=== PATIENT | female | born 1940 | race Caucasian/White ===

== ENCOUNTER 2018-07-04 15:12 | Emergency (ER) | payer MEDICARE, OTHER ==
--- NOTE | 2018-07-04 16:02 | EDM.PDOC ---
ED HPI GENERAL MEDICAL PROBLEM - General Chief Complaint: General Stated Complaint: ILLNESS Time Seen by Provider: 07/04/18 15:35 Source of Information: Reports: Patient History Limitations: Reports: No Limitations - History of Present Illness INITIAL COMMENTS - FREE TEXT/NARRATIVE: Summer presents to the emergency room with complaints of nausea, left shoulder pain, jaw pain, feeling dizzy and sweating. She also reports SOB at times but states her SOB is nothing worse then her usual SOB. She denies fever, chills, vomiting or change in bowel/bladder function. She has tried pushing oral fluids and drank 2 bottles of propel water along with 16 ounce glasses of water x 5 today. - Related Data Allergies Allergy/AdvReac Type Severity Reaction Status Date / Time cefaclor [Cefaclor] Allergy Unknown unknown Verified 10/26/16 13:49 Sulfa (Sulfonamide Allergy Unknown unknown Verified 10/26/16 13:49 Antibiotics) ciprofloxacin [From Cipro] Allergy Hallucinati Verified 10/26/16 13:56 ons codeine Allergy Rash Verified 10/26/16 13:49 cyclobenzaprine Allergy Hallucinati Verified 10/26/16 13:56 [From Flexeril] ons levofloxacin Allergy Hallucinati Verified 10/26/16 13:56 ons Home Meds: Home Meds Aspirin 81 mg PO ASDIRECTED 07/21/13 [History] Atenolol 25 mg PO BID 07/21/13 [History] FLUoxetine [PROzac] 10 mg PO DAILY 07/21/13 [History] Losartan [Cozaar] 25 mg PO BID 07/21/13 [History] Omeprazole [Prilosec] 20 mg PO DAILY 07/21/13 [History] Sennosides/Docusate Sodium [Senna-Docusate Sodium] 1 each PO QPM #24 tablet 01/28 [Rx] hydroCHLOROthiazide [Hydrochlorothiazide] 25 mg PO DAILY 07/21/13 [History] Past Medical History HEENT History: Reports: Hard of Hearing, Impaired Vision Cardiovascular History: Reports: High Cholesterol, Hypertension Respiratory History: Reports: Asthma, COPD Gastrointestinal History: Reports: Chronic Constipation, Gastritis Genitourinary History: Reports: UTI, Recurrent [employer]IS[employer]OR PREFLIGHT History: Reports: Endometriosis Musculoskeletal History: Reports: Osteoarthritis Psychiatric History: Reports: Anxiety Dermatologic History: Reports: Other (See Below) Other Dermatologic History: fungus l middle finger - Infectious Disease History Infectious Disease History: Reports: Chicken Pox, Measles, Mumps - Past Surgical History Female Surgical History: Reports: Breast Biopsy, Hysterectomy, Salpingo- Oophorectomy Social & Family History - Tobacco Use Smoking Status *Q: Former Smoker Used Tobacco, but Quit: Yes Month/Year Tobacco Last Used: many years ago - Caffeine Use Caffeine Use: Reports: Soda - Recreational Drug Use Recreational Drug Use: No ED ROS GENERAL - Review of Systems Review Of Systems: See Below Constitutional: Reports: Diaphoresis. Denies: Fever, Chills, Malaise, Weakness HEENT: Reports: Other (she complains of jaw pain off and on with aching. ). Denies: Ear Pain, Throat Pain Respiratory: Reports: Shortness of Breath. Denies: Wheezing, Cough, Sputum, Hemoptysis Cardiovascular: Reports: Dyspnea on Exertion, Other (She complains of dizziness , left shoulder/arm pain and jaw pain at times since she has been moving to a town house from an apartment. ). Denies: Chest Pain, Edema, Lightheadedness, Palpitations, PND, Syncope Endocrine: Reports: No Symptoms GI/Abdominal: Reports: No Symptoms : Reports: Urinary Retention, Other (She reports urinary retention is normal for her). Denies: Dysuria, Flank Pain, Frequency, Hematuria, Pain, Urgency Musculoskeletal: Reports: Shoulder Pain, Arm Pain Skin: Reports: No Symptoms Neurological: Reports: Dizziness. Denies: Confusion, Headache, Numbness, Pre- Existing Deficit, Syncope, Tingling, Trouble Speaking, Difficulty Walking, Weakness, Gait Disturbance Psychiatric: Reports: No Symptoms Hematologic/Lymphatic: Reports: No Symptoms Immunologic: Reports: No Symptoms ED EXAM, GENERAL - Physical Exam Exam: See Below Free Text/Narrative:: Summer is an alert and oriented 77 year old female presenting with complaints of nausea, left shoulder pain, jaw pain, feeling dizzy and sweating. She also reports SOB at times but states her SOB is nothing worse then her usual SOB. She denies fever, chills, vomiting or change in bowel/bladder function. Summer has been moving from an apartment to a town house. She states she has been drinking more Dr. Pepper recently. She denies injury or fall. Exam Limited By: No Limitations General Appearance: Alert, WD/WN, No Apparent Distress Eye Exam: Bilateral Eye: EOMI, Normal Inspection, PERRL Ears: Normal External Exam, Normal Canal, Hearing Grossly Normal, Normal TMs Ear Exam: Bilateral Ear: Auricle Normal, Canal Normal, TM normal Nose: Normal Inspection, Normal Mucosa, No Blood Throat/Mouth: Normal Inspection, Normal Lips, Normal Gums, Normal Oropharynx, Normal Voice, No Airway Compromise Head: Atraumatic, Normocephalic Neck: Normal Inspection, Supple, Non-Tender, Full Range of Motion. No: Lymphadenopathy (R), Lymphadenopathy (L) Respiratory/Chest: No Respiratory Distress, Lungs Clear, Normal Breath Sounds, No Accessory Muscle Use, Chest Non-Tender Cardiovascular: Normal Peripheral Pulses, Regular Rate, Rhythm, No Edema, No Gallop, No Murmur, No Rub Peripheral Pulses: 2+: Radial (L), Radial (R), Dorsalis Pedis (L), Dorsalis Pedis (R) GI/Abdominal: Normal Bowel Sounds, Soft, Non-Tender, No Organomegaly, No Distention, No Mass Back Exam: Normal Inspection, Full Range of Motion. No: CVA Tenderness (R), CVA Tenderness (L) Extremities: Normal Inspection, Normal Range of Motion, Non-Tender, No Pedal Edema, Normal Capillary Refill Neurological: Alert, Oriented, CN II-XII Intact, Normal Cognition, Normal Gait, No Motor/Sensory Deficits Psychiatric: Normal Affect, Normal Mood Skin Exam: Warm, Dry, Intact, Normal Color, No Rash Lymphatic: No Adenopathy EKG INTERPRETATION EKG Date: 07/04/18 Time: 16:01 Rhythm: NSR Rate (Beats/Min): 64 [place]: Normal P-Wave: Present QRS: Normal ST-T: Normal QT: Normal Course - Vital Signs Last Recorded V/S: Last Vital Signs Temp 36.4 C 07/04/18 15:27 Pulse 67 07/04/18 20:00 Resp 18 07/04/18 20:00 BP 116/79 07/04/18 20:00 Pulse Ox 98 07/04/18 20:00 - Orders/Labs/Meds Orders: Active Orders 24 hr Category Date Time Status EKG Documentation Completion [RC] ASDIRECTED Care 07/04/18 16:01 Active Chest 1V Frontal [CR] Stat Exams 07/04/18 16:01 Taken NS + KCl 20mEq/L [Normal Saline with 20 mEq KCl] 1,000 Med 07/04/18 19:15 Active ml IV ASDIRECTED Potassium Chloride [Klor-Con M20] Med 07/05/18 09:00 Active 20 meq PO DAILY Sodium Chloride 0.9% [Saline Flush] Med 07/04/18 19:13 Active 10 ml FLUSH ASDIRECTED PRN Saline Lock Insert [OM.PC] Routine Oth 07/04/18 19:13 Ordered EKG 12 Lead [EK] Routine Ther 07/04/18 15:59 Ordered Medication Orders Potassium Chloride/Sodium Chloride (Normal Saline With 20 Meq Kcl) 1,000 mls @ 500 mls/hr IV ASDIRECTED DONAVAN Last Admin: 07/04/18 19:38 Dose: 500 mls/hr Potassium Chloride (Klor-Con M20) 20 meq PO DAILY DONAVAN Last Admin: 07/04/18 19:47 Dose: 20 meq Sodium Chloride (Saline Flush) 10 ml FLUSH ASDIRECTED PRN PRN Reason: Keep Vein Open Labs: Laboratory Tests 07/04/18 07/04/18 07/04/18 Range/Units 16:12 16:12 16:12 WBC 10.3 (4.5-11.0) K/uL RBC 4.31 (3.30-5.50) M/uL Hgb 11.9 L (12.0-15.0) g/dL Hct 36.4 (36.0-48.0) % MCV 85 (80-98) fL MCH 28 (27-31) pg MCHC 33 (32-36) % Plt Count 230 (150-400) K/uL Neut % (Auto) 56 (36-66) % Lymph % (Auto) 28 (24-44) % [place] % (Auto) 11 H (2-6) % Eos % (Auto) 4 (2-4) % Baso % (Auto) 1 (0-1) % D-Dimer, Quantitative < 100 (0.0-400.0) ng/mL Sodium (140-148) mmol/L Potassium (3.6-5.2) mmol/L Chloride (100-108) mmol/L Carbon Dioxide (21-32) mmol/L Anion Gap (5.0-14.0) mmol/L BUN (7-18) mg/dL Creatinine (0.6-1.0) mg/dL Est Cr Clr Drug Dosing mL/min Estimated GFR (MDRD) (>60) Glucose (74-106) mg/dL Calcium (8.5-10.1) mg/dL Magnesium (1.8-2.4) mg/dL Total Bilirubin (0.2-1.0) mg/dL AST (15-37) U/L ALT (12-78) U/L Alkaline Phosphatase (46-116) U/L Troponin I (0.000-0.056) ng/mL Total Protein (6.4-8.2) g/dL Albumin (3.4-5.0) g/dL Globulin (2.3-3.5) g/dL Albumin/Globulin Ratio (1.2-2.2) Urine Color Yellow Urine Appearance Clear Urine pH 5.0 (4.5-8.0) Ur Specific [place] 1.005 L (1.008-1.030) Urine Protein Negative (NEGATIVE) mg/dL Urine Glucose (UA) Normal (NEGATIVE) mg/dL Urine Ketones Negative (NEGATIVE) mg/dL Urine Occult Blood Negative (NEGATIVE) Urine Nitrite Negative (NEGATIVE) Urine Bilirubin Negative (NEGATIVE) Urine Urobilinogen Normal (NORMAL) mg/dL Ur Leukocyte Esterase Negative (NEGATIVE) Urine RBC Not seen (0-5) Urine WBC Not seen (0-5) Ur Epithelial Cells Not seen Amorphous Sediment Not seen Urine Bacteria Not seen Urine Mucus Not seen 07/04/18 07/04/18 Range/Units 16:12 18:15 WBC (4.5-11.0) K/uL RBC (3.30-5.50) M/uL Hgb (12.0-15.0) g/dL Hct (36.0-48.0) % MCV (80-98) fL MCH (27-31) pg MCHC (32-36) % Plt Count (150-400) K/uL Neut % (Auto) (36-66) % Lymph % (Auto) (24-44) % [place] % (Auto) (2-6) % Eos % (Auto) (2-4) % Baso % (Auto) (0-1) % D-Dimer, Quantitative (0.0-400.0) ng/mL Sodium 128 L (140-148) mmol/L Potassium 3.2 L (3.6-5.2) mmol/L Chloride 92 L (100-108) mmol/L Carbon Dioxide 28 (21-32) mmol/L Anion Gap 11.2 (5.0-14.0) mmol/L BUN 18 (7-18) mg/dL Creatinine 0.9 (0.6-1.0) mg/dL Est Cr Clr Drug Dosing 51.13 mL/min Estimated GFR (MDRD) > 60 (>60) Glucose 95 (74-106) mg/dL Calcium 8.2 L (8.5-10.1) mg/dL Magnesium 1.8 (1.8-2.4) mg/dL Total Bilirubin 0.3 (0.2-1.0) mg/dL AST 30 (15-37) U/L ALT 38 (12-78) U/L Alkaline Phosphatase 56 (46-116) U/L Troponin I 0.025 0.024 (0.000-0.056) ng/mL Total Protein 6.7 (6.4-8.2) g/dL Albumin 3.5 (3.4-5.0) g/dL Globulin 3.2 (2.3-3.5) g/dL Albumin/Globulin Ratio 1.1 L (1.2-2.2) Urine Color Urine Appearance Urine pH (4.5-8.0) Ur Specific [place] (1.008-1.030) Urine Protein (NEGATIVE) mg/dL Urine Glucose (UA) (NEGATIVE) mg/dL Urine Ketones (NEGATIVE) mg/dL Urine Occult Blood (NEGATIVE) Urine Nitrite (NEGATIVE) Urine Bilirubin (NEGATIVE) Urine Urobilinogen (NORMAL) mg/dL Ur Leukocyte Esterase (NEGATIVE) Urine RBC (0-5) Urine WBC (0-5) Ur Epithelial Cells Amorphous Sediment Urine Bacteria Urine Mucus Meds: Medications Generic Name Dose Route Start Last Admin Trade Name Freq PRN Reason Stop Dose Admin Potassium Chloride/Sodium Chloride 1,000 mls @ 500 mls/hr 07/04/18 19:15 19:38 Normal Saline With 20 Meq Kcl IV 500 mls/hr ASDIRECTED DONAVAN Administration Potassium Chloride 20 meq 07/05/18 09:00 07/04/18 19:47 Klor-Con M20 PO 20 meq DAILY DONAVAN Administration Sodium Chloride 10 ml 08/17/18 19:13 Saline Flush FLUSH ASDIRECTED PRN Keep Vein Open Discontinued Medications Generic Name Dose Route Start Last Admin Trade Name Gary PRN Reason Stop Dose Admin Potassium Chloride 10 meq 07/04/18 19:11 07/04/18 19:40 Potassium Chloride PO 07/04/18 19:12 10 meq ONETIME ONE Administration Potassium Chloride Confirm 07/04/18 19:33 07/04/18 19:48 Klor-Con M20 Administered 07/04/18 19:34 Not Given Dose 20 meq [facility] - Re-Assessments/Exams Free Text/Narrative Re-Assessment/Exam: 07/04/18 19:00 Reviewed troponin, patient status/condition with Dr. Lamb. We will administer IV normal saline, potassium and discharge patient to home if she tolerates it well. Departure - Departure Time of Disposition: 20:50 Disposition: Home, Self-Care 01 Condition: Good Clinical Impression: Dehydration, Hypokalemia, Hyponatremia - Discharge Information *PRESCRIPTION DRUG MONITORING PROGRAM REVIEWED*: No *COPY OF PRESCRIPTION DRUG MONITORING REPORT IN PATIENT LISSY: Not Applicable Referrals: Gilberto Page MD [Primary Care Provider] - Forms: ED Department Discharge Additional Instructions: You have been evaluated and treated for dehydration, low sodium and low potassium levels. You have been given normal saline IV 1000ml fluids, potassium IV, oral potassium. Your cardiac lab troponin was reviewed and found to be 0.025 and repeat of 0.024. EKG normal. Despite these tests being normal, it is in your best interest to follow up with your primary provider for a recheck and any other cardiac work up. Follow up with your provider in 3 to 7 days for a recheck of your potassium, sodium levels. Keep yourself hydrated. Return for any worsening of symptoms, changes or concerns. - My Orders Last 24 Hours: My Active Orders 07/04/18 15:59 EKG 12 Lead [EK] Routine 07/04/18 16:01 EKG Documentation Completion [RC] ASDIRECTED Chest 1V Frontal [CR] Stat 07/04/18 19:13 Sodium Chloride 0.9% [Saline Flush] 10 ml FLUSH ASDIRECTED PRN Saline Lock Insert [OM.PC] Routine 07/04/18 19:15 NS + KCl 20mEq/L [Normal Saline with 20 mEq KCl] 1,000 ml IV ASDIRECTED 07/05/18 09:00 Potassium Chloride [Klor-Con M20] 20 meq PO DAILY - Assessment/Plan Last 24 Hours: My Active Orders 07/04/18 15:59 EKG 12 Lead [EK] Routine 07/04/18 16:01 EKG Documentation Completion [RC] ASDIRECTED Chest 1V Frontal [CR] Stat 07/04/18 19:13 Sodium Chloride 0.9% [Saline Flush] 10 ml FLUSH ASDIRECTED PRN Saline Lock Insert [OM.PC] Routine 07/04/18 19:15 NS + KCl 20mEq/L [Normal Saline with 20 mEq KCl] 1,000 ml IV ASDIRECTED 07/05/18 09:00 Potassium Chloride [Klor-Con M20] 20 meq PO DAILY Assessment:: Dehydration hyponatremia hypokalemia Plan: Patient evaluated and treated for dehydration, hypokalemia, hyponatremia She have been given normal saline IV 1000ml fluids, potassium IV, oral potassium. She reports feeling better after interventions. Her cardiac lab troponin was reviewed and found to be 0.025 and repeat of 0.024. EKG normal. Despite these tests being normal, it is in herbest interest to follow up with her primary provider for a recheck and any other cardiac work up. Follow up with primary provider in 3 to 7 days for a recheck of potassium, sodium levels. Keep hydrated. Return for any worsening of symptoms, changes or concerns.
[2018-07-04] MEDS ORDERED: Potassium Chloride 10 MEQ Cap.ER PO ONE (19:11)
[2018-07-04] MEDS ORDERED: Sodium Chloride 0.9% 10 ML Syringe FLUSH PRN (19:13)
[2018-07-04] MEDS ORDERED: NS + KCl 20mEq/L 1,000 ML IV SCH (19:15)
[2018-07-04] MEDS: Potassium Chloride 20 MEQ Tab.ER ONE ×2 (19:40→19:48)
[2018-07-04 21:27] VITALS: BP 141/66
[2018-07-05] MEDS ORDERED: Potassium Chloride 20 MEQ Tab.ER PO SCH (09:00)
--- NOTE | 2018-07-07 09:38 | CR ---
CHEST: Portable CLINICAL HISTORY:SOB COMPARISON:None FINDINGS: Heart size and pulmonary vascularity are normal. There are atherosclerotic changes in the aorta.. Lung beal are clear.. IMPRESSION: No acute cardiopulmonary process
== END 2018-07-04 21:35 | disposition home or self-care (01) ==
LOC: JP.ED 15:12
DX: E87.6 Hypokalemia (principal); E86.0 Dehydration; E87.1 Hypo-osmolality and hyponatremia; I10 Essential (primary) hypertension; Z79.82 Long term (current) use of aspirin; Z87.891 Personal history of nicotine dependence; Z79.899 Other long term (current) drug therapy; Z88.2 Allergy status to sulfonamides; Z88.1 Allergy status to other antibiotic agents; Z88.5 Allergy status to narcotic agent; Z88.8 Allergy status to other drugs, medicaments and biological substances
CPT/HCPCS: 36415; 71045; 80053; 81001; 83735; 84484; 85025; 85379; 93005; 96365; 96366; 99284; A9270; J3480

== ENCOUNTER 2018-07-31 07:56 | Emergency (ER) | payer MEDICARE, OTHER ==
--- NOTE | 2018-07-31 08:58 | EDM.PDOC ---
ED HPI GENERAL MEDICAL PROBLEM - General Chief Complaint: General Stated Complaint: JAW IS TIGHT, COPD, ASTHMA, KIDNEY ISSUES Time Seen by Provider: 07/31/18 08:50 Source of Information: Reports: Patient History Limitations: Reports: No Limitations - History of Present Illness INITIAL COMMENTS - FREE TEXT/NARRATIVE: pt arrived stating that she is not feeling well. She is very diaphoretic and she is having tightness in her jaws. She has recently moved to a different apartment and she sdmits to over doing. Onset: Gradual, Other ( Her toporol was stopped by Dr Page and she has felt worse since that time. ) Duration: Hour(s): Location: Reports: Other ( tightness in her jaws. ) Associated Symptoms: Reports: Diaphoresis Face Pain Score (Numeric/FACES): 2 - Related Data Allergies Allergy/AdvReac Type Severity Reaction Status Date / Time cefaclor [Cefaclor] Allergy Unknown unknown Verified 10/26/16 13:49 Sulfa (Sulfonamide Allergy Unknown unknown Verified 10/26/16 13:49 Antibiotics) ciprofloxacin [From Cipro] Allergy Hallucinati Verified 10/26/16 13:56 ons codeine Allergy Rash Verified 10/26/16 13:49 cyclobenzaprine Allergy Hallucinati Verified 10/26/16 13:56 [From Flexeril] ons levofloxacin Allergy Hallucinati Verified 10/26/16 13:56 ons Home Meds: Home Meds Aspirin 81 mg PO ASDIRECTED 07/21/13 [History] Atenolol 25 mg PO BID 07/21/13 [History] FLUoxetine [PROzac] 10 mg PO DAILY 07/21/13 [History] Losartan [Cozaar] 25 mg PO BID 07/21/13 [History] Omeprazole [Prilosec] 20 mg PO DAILY 07/21/13 [History] Sennosides/Docusate Sodium [Senna-Docusate Sodium] 1 each PO QPM #24 tablet 01/28 [Rx] hydroCHLOROthiazide [Hydrochlorothiazide] 25 mg PO DAILY 07/21/13 [History] Past Medical History HEENT History: Reports: Hard of Hearing, Impaired Vision Cardiovascular History: Reports: High Cholesterol, Hypertension Respiratory History: Reports: Asthma, COPD Gastrointestinal History: Reports: Chronic Constipation, Gastritis Genitourinary History: Reports: UTI, Recurrent 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: Reports: Endometriosis Musculoskeletal History: Reports: Osteoarthritis Psychiatric History: Reports: Anxiety Dermatologic History: Reports: Other (See Below) Other Dermatologic History: fungus l middle finger - Infectious Disease History Infectious Disease History: Reports: Chicken Pox, Measles, Mumps, Scarlet Fever - Past Surgical History Female Surgical History: Reports: Breast Biopsy, Hysterectomy, Salpingo- Oophorectomy Social & Family History - Tobacco Use Smoking Status *Q: Never Smoker - Caffeine Use Caffeine Use: Reports: Soda - Recreational Drug Use Recreational Drug Use: No ED ROS GENERAL - Review of Systems Review Of Systems: See Below Constitutional: Reports: Fatigue, Diaphoresis, Decreased Appetite HEENT: Reports: No Symptoms Respiratory: Reports: No Symptoms Cardiovascular: Reports: No Symptoms Endocrine: Reports: No Symptoms GI/Abdominal: Reports: No Symptoms, Other ( slight tenderness in the left lower quadrant. She had a bm yesterday but not today. ) : Reports: No Symptoms, Other ( She does go frequently) Musculoskeletal: Reports: No Symptoms Skin: Reports: No Symptoms Neurological: Reports: Dizziness Psychiatric: Reports: Anxiety ED EXAM, GENERAL - Physical Exam Exam: See Below Free Text/Narrative:: pt is alert and at this point not diaphoretic. She has some tightness in her jaws but no actual pain . Exam Limited By: No Limitations General Appearance: Alert, Anxious Ears: Normal TMs Nose: Normal Inspection Throat/Mouth: Normal Inspection Head: Atraumatic Respiratory/Chest: No Respiratory Distress Cardiovascular: Regular Rate, Rhythm GI/Abdominal: Soft, Non-Tender (Female) Exam: Deferred Rectal (Female) Exam: Deferred Back Exam: Normal Inspection Extremities: Normal Inspection Neurological: Alert, Oriented, Normal Cognition Psychiatric: Anxious Course - Vital Signs Last Recorded V/S: Last Vital Signs Temp 35.5 C 07/31/18 08:11 Pulse 68 07/31/18 09:30 Resp 12 07/31/18 09:30 BP 136/80 07/31/18 09:30 Pulse Ox 96 07/31/18 09:30 Orthostatic Blood Pressure [ 137/74 Standing] Orthostatic Blood Pressure [ 138/76 Sitting] Orthostatic Blood Pressure [ 136/80 Supine] - Orders/Labs/Meds Orders: Active Orders 24 hr Category Date Time Status EKG Documentation Completion [RC] ASDIRECTED Care 07/31/18 08:23 Active Orthostatic Vital Signs [RC] ASDIRECTED Care 07/31/18 08:59 Active EKG 12 Lead [EK] Routine Ther 07/31/18 08:23 Ordered Labs: Laboratory Tests 07/31/18 07/31/18 07/31/18 Range/Units 08:28 08:30 08:30 WBC 8.6 (4.5-11.0) K/uL RBC 4.57 (3.30-5.50) M/uL Hgb 12.4 (12.0-15.0) g/dL Hct 37.4 (36.0-48.0) % MCV 82 (80-98) fL MCH 27 (27-31) pg MCHC 33 (32-36) % Plt Count 234 (150-400) K/uL Neut % (Auto) 64 (36-66) % Lymph % (Auto) 21 L (24-44) % [place] % (Auto) 10 H (2-6) % Eos % (Auto) 5 H (2-4) % Baso % (Auto) 1 (0-1) % Sodium (140-148) mmol/L Potassium (3.6-5.2) mmol/L Chloride (100-108) mmol/L Carbon Dioxide (21-32) mmol/L Anion Gap (5.0-14.0) mmol/L BUN (7-18) mg/dL Creatinine (0.6-1.0) mg/dL Est Cr Clr Drug Dosing mL/min Estimated GFR (MDRD) (>60) Glucose (74-106) mg/dL Calcium (8.5-10.1) mg/dL Total Bilirubin (0.2-1.0) mg/dL AST (15-37) U/L ALT (12-78) U/L Alkaline Phosphatase (46-116) U/L Troponin I 0.048 (0.000-0.056) ng/mL Total Protein (6.4-8.2) g/dL Albumin (3.4-5.0) g/dL Globulin (2.3-3.5) g/dL Albumin/Globulin Ratio (1.2-2.2) TSH, Ultra Sensitive (0.358-3.740) uIU/mL Urine Color Yellow Urine Appearance Clear Urine pH 6.0 (4.5-8.0) Ur Specific [place] 1.010 (1.008-1.030) Urine Protein Trace (NEGATIVE) mg/dL Urine Glucose (UA) Normal (NEGATIVE) mg/dL Urine Ketones Negative (NEGATIVE) mg/dL Urine Occult Blood Moderate (NEGATIVE) Urine Nitrite Negative (NEGATIVE) Urine Bilirubin Negative (NEGATIVE) Urine Urobilinogen Normal (NORMAL) mg/dL Ur Leukocyte Esterase Negative (NEGATIVE) Urine RBC 0-5 (0-5) Urine WBC Not seen (0-5) Ur Epithelial Cells Not seen Amorphous Sediment Not seen Urine Bacteria Not seen Urine Mucus Not seen 07/31/18 07/31/18 Range/Units 08:30 08:47 WBC (4.5-11.0) K/uL RBC (3.30-5.50) M/uL Hgb (12.0-15.0) g/dL Hct (36.0-48.0) % MCV (80-98) fL MCH (27-31) pg MCHC (32-36) % Plt Count (150-400) K/uL Neut % (Auto) (36-66) % Lymph % (Auto) (24-44) % [place] % (Auto) (2-6) % Eos % (Auto) (2-4) % Baso % (Auto) (0-1) % Sodium 130 L (140-148) mmol/L Potassium 3.1 L (3.6-5.2) mmol/L Chloride 92 L (100-108) mmol/L Carbon Dioxide 31 (21-32) mmol/L Anion Gap 10.1 (5.0-14.0) mmol/L BUN 16 (7-18) mg/dL Creatinine 0.9 (0.6-1.0) mg/dL Est Cr Clr Drug Dosing 49.29 mL/min Estimated GFR (MDRD) > 60 (>60) Glucose 108 H (74-106) mg/dL Calcium 9.0 (8.5-10.1) mg/dL Total Bilirubin 0.4 (0.2-1.0) mg/dL AST 27 (15-37) U/L ALT 39 (12-78) U/L Alkaline Phosphatase 63 (46-116) U/L Troponin I (0.000-0.056) ng/mL Total Protein 7.0 (6.4-8.2) g/dL Albumin 3.6 (3.4-5.0) g/dL Globulin 3.4 (2.3-3.5) g/dL Albumin/Globulin Ratio 1.1 L (1.2-2.2) TSH, Ultra Sensitive 1.520 (0.358-3.740) uIU/mL Urine Color Urine Appearance Urine pH (4.5-8.0) Ur Specific [place] (1.008-1.030) Urine Protein (NEGATIVE) mg/dL Urine Glucose (UA) (NEGATIVE) mg/dL Urine Ketones (NEGATIVE) mg/dL Urine Occult Blood (NEGATIVE) Urine Nitrite (NEGATIVE) Urine Bilirubin (NEGATIVE) Urine Urobilinogen (NORMAL) mg/dL Ur Leukocyte Esterase (NEGATIVE) Urine RBC (0-5) Urine WBC (0-5) Ur Epithelial Cells Amorphous Sediment Urine Bacteria Urine Mucus Meds: Medications Discontinued Medications Generic Name Dose Route Start Last Admin Trade Name Freq PRN Reason Stop Dose Admin Potassium Chloride 20 meq 07/31/18 09:34 07/31/18 09:49 Klor-Con M20 PO 07/31/18 09:35 20 meq ONETIME ONE Administration - Re-Assessments/Exams Free Text/Narrative Re-Assessment/Exam: 07/31/18 10:06 pt had lab work that fell in the normal range . Her k was on the low side. She is not resting at nite. She admits to being more anxious since her move. 08/01/18 07:52 Departure - Departure Time of Disposition: 10:07 Disposition: Home, Self-Care 01 Condition: Fair Clinical Impression: Anxiety, Hypokalemia - Discharge Information Instructions: Generalized Anxiety Disorder, Adult, Hypokalemia Referrals: Gilberto Page MD [Primary Care Provider] - Forms: ED Department Discharge Care Plan Goals: appt with Dr Page in 10 days, increase prozac to 20mg daily--2tabs, use tylenol pm to promote better rest pattern, kcl 10meq daily, If persistent sweatiness perhaps a cardiac stress test would be in order. - My Orders Last 24 Hours: My Active Orders 07/31/18 08:23 EKG Documentation Completion [RC] ASDIRECTED EKG 12 Lead [EK] Routine 07/31/18 08:59 Orthostatic Vital Signs [RC] ASDIRECTED - Assessment/Plan Last 24 Hours: My Active Orders 07/31/18 08:23 EKG Documentation Completion [RC] ASDIRECTED EKG 12 Lead [EK] Routine 07/31/18 08:59 Orthostatic Vital Signs [RC] ASDIRECTED
[2018-07-31] MEDS ORDERED: Potassium Chloride 20 MEQ Tab.ER PO ONE (09:34)
[2018-07-31 09:39] VITALS: BP 136/80
== END 2018-07-31 10:00 | disposition home or self-care (01) ==
LOC: JP.ED 07:56
DX: F41.9 Anxiety disorder, unspecified (principal); E87.6 Hypokalemia; I10 Essential (primary) hypertension; E78.00 Pure hypercholesterolemia, unspecified; Z88.5 Allergy status to narcotic agent; Z79.82 Long term (current) use of aspirin; Z79.899 Other long term (current) drug therapy; Z88.1 Allergy status to other antibiotic agents; Z88.2 Allergy status to sulfonamides
CPT/HCPCS: 36415; 80053; 81001; 84443; 84484; 85025; 93005; 99283; 99284-25; A9270-GY

== ENCOUNTER 2019-01-08 09:04 | Emergency (ER) | payer MEDICARE, OTHER ==
[2019-01-08 09:30] VITALS: BP 127/46
--- NOTE | 2019-01-08 09:54 | EDM.PDOC ---
ED HPI GENERAL MEDICAL PROBLEM - General Chief Complaint: Respiratory Problem Stated Complaint: SOB Time Seen by Provider: 01/08/19 09:30 Source of Information: Reports: Patient History Limitations: Reports: No Limitations - History of Present Illness INITIAL COMMENTS - FREE TEXT/NARRATIVE: 78-year-old female arrives very anxious, hyperventilating and short of breath for the last several hours. She is not getting any sleep because of the noisy neighbor. She has some intermittent right posterior leg pain and is having cramps in her hands. She wants me to test "all her labs". No fever or chills. Her O2 saturations are 100% and she is obviously extremely anxious and hyperventilating. When I went through her medications, her doctors have tried clonazepam and lorazepam, trazodone and she can't take any of them because they make her "worse". Associated Symptoms: Reports: Weakness (Dizziness, lightheaded when standing). Denies: Confusion, Chest Pain, Cough, Fever/Chills, Headaches, Nausea/Vomiting Right Leg Pain Score (Numeric/FACES): 8 - Related Data Allergies Allergy/AdvReac Type Severity Reaction Status Date / Time cefaclor [Cefaclor] Allergy Unknown unknown Verified 01/08/19 09:24 Sulfa (Sulfonamide Allergy Unknown unknown Verified 01/08/19 09:24 Antibiotics) ciprofloxacin [From Cipro] Allergy Hallucinati Verified 01/08/19 09:24 ons codeine Allergy Rash Verified 01/08/19 09:24 cyclobenzaprine Allergy Hallucinati Verified 01/08/19 09:24 [From Flexeril] ons levofloxacin Allergy Hallucinati Verified 01/08/19 09:24 ons Home Meds: Home Meds Aspirin 81 mg PO DAILY 07/21/13 [History] Losartan [Cozaar] 25 mg PO BID 07/21/13 [History] Omeprazole [Prilosec] 20 mg PO DAILY 07/21/13 [History] hydroCHLOROthiazide [Hydrochlorothiazide] 25 mg PO DAILY 07/21/13 [History] Acetaminophen/Diphenhydramine [Tylenol Pm Ex-Strength Caplet] 1 tab PO BEDTIME 08/06/18 [History] Albuterol Sulfate 3 ml INH Q4H PRN 08/06/18 [History] Albuterol Sulfate [Proair Hfa] 1 - 2 puff INH Q4H PRN 08/06/18 [History] Allopurinol [Zyloprim] 1 tab PO DAILY 08/06/18 [History] Fluticasone/Salmeterol [Advair 250-50] 1 puff INH BID 08/06/18 [History] Potassium Chloride 10 meq PO DAILY 08/06/18 [History] Past Medical History HEENT History: Reports: Hard of Hearing, Impaired Vision Cardiovascular History: Reports: High Cholesterol, Hypertension Respiratory History: Reports: Asthma, COPD Gastrointestinal History: Reports: Chronic Constipation, Gastritis Genitourinary History: Reports: UTI, Recurrent [employer]ING [employer] BED History: Reports: Endometriosis Musculoskeletal History: Reports: Osteoarthritis Psychiatric History: Reports: Anxiety, Depression Endocrine/Metabolic History: Reports: Obesity/BMI 30+ Dermatologic History: Reports: Other (See Below) Other Dermatologic History: fungus l middle finger - Infectious Disease History Infectious Disease History: Reports: Chicken Pox, Measles, Mumps, Scarlet Fever - Past Surgical History Head Surgeries/Procedures: Reports: None HEENT Surgical History: Reports: Tonsillectomy Cardiovascular Surgical History: Reports: None Respiratory Surgical History: Reports: None GI Surgical History: Reports: None Female Surgical History: Reports: Breast Biopsy, Hysterectomy, Salpingo- Oophorectomy Musculoskeletal Surgical History: Reports: None Dermatological Surgical History: Reports: None Social & Family History - Tobacco Use Smoking Status *Q: Former Smoker Years of Tobacco use: 42 Used Tobacco, but Quit: Yes Month/Year Tobacco Last Used: 1979 Second Hand Smoke Exposure: No - Caffeine Use Caffeine Use: Reports: None - Recreational Drug Use Recreational Drug Use: No ED ROS GENERAL - Review of Systems Review Of Systems: See Below Constitutional: Denies: Fever, Chills HEENT: Denies: Ear Pain, Throat Pain, Vision Change Respiratory: Reports: Shortness of Breath. Denies: Cough Cardiovascular: Denies: Chest Pain Endocrine: Reports: Fatigue GI/Abdominal: Reports: No Symptoms : Reports: No Symptoms Skin: Reports: No Symptoms Neurological: Reports: Dizziness Psychiatric: Reports: Anxiety ED EXAM, GENERAL - Physical Exam Exam: See Below Exam Limited By: No Limitations General Appearance: Alert, Anxious, Mild Distress, Other (Patient appears to be obviously hyperventilating.) Head: Atraumatic Respiratory/Chest: No Respiratory Distress, Lungs Clear, Normal Breath Sounds Cardiovascular: Regular Rate, Rhythm. No: Tachycardia GI/Abdominal: Non-Tender Extremities: Normal Inspection, Other (I cannot reproduce tenderness to the posterior right leg, she has no edema) Neurological: Alert, Oriented Psychiatric: Anxious Course - Vital Signs Last Recorded V/S: Last Vital Signs Temp 96.8 F 01/08/19 09:36 Pulse 86 01/08/19 09:36 Resp 24 H 01/08/19 09:36 BP 127/46 L 01/08/19 09:36 Pulse Ox 100 01/08/19 09:36 - Orders/Labs/Meds Labs: Laboratory Tests 01/08/19 01/08/19 01/08/19 Range/Units 09:47 10:00 10:00 WBC 8.7 (4.5-11.0) K/uL RBC 4.09 (3.30-5.50) M/uL Hgb 7.4 L D (12.0-15.0) g/dL Hct 26.8 L (36.0-48.0) % MCV 66 L (80-98) fL MCH 18 L (27-31) pg MCHC 28 L (32-36) % Plt Count 450 H (150-400) K/uL Neut % (Auto) 66 (36-66) % Lymph % (Auto) 19 L (24-44) % [place] % (Auto) 13 H (2-6) % Eos % (Auto) 1 L (2-4) % Baso % (Auto) 1 (0-1) % D-Dimer, Quantitative < 100 (0.0-400.0) ng/mL Puncture Site Lt radial ABG pH 7.531 H (7.350-7.450) ABG pCO2 26.7 L (35.0-42.0) mmHg ABG pO2 91.7 (75.0-100.0) mmHg ABG HCO3 22.3 (22.0-26.0) mmol/L ABG Total CO2 20.9 L (21.0-25.0) mmol/L ABG O2 Saturation 97.8 (95.0-98.0) % ABG O2 Content 10.3 L (15.0-23.0) %vol ABG Base Excess 0.2 mm/L ABG Hemoglobin 7.6 L (12.0-16.0) g/dL ABG Oxyhemoglobin 94.9 % ABG Carboxyhemoglobin 1.8 H (0.0-1.6) % ABG Methemoglobin 1.2 % Petey Test Passed O2 Delivery Device Room air Sodium (140-148) mmol/L Potassium (3.6-5.2) mmol/L Chloride (100-108) mmol/L Carbon Dioxide (21-32) mmol/L Anion Gap (5.0-14.0) mmol/L BUN (7-18) mg/dL Creatinine (0.6-1.0) mg/dL Est Cr Clr Drug Dosing mL/min Estimated GFR (MDRD) (>60) Glucose (74-106) mg/dL Calcium (8.5-10.1) mg/dL Ferritin (8-388) ng/ml Total Bilirubin (0.2-1.0) mg/dL AST (15-37) U/L ALT (12-78) U/L Alkaline Phosphatase (46-116) U/L Troponin I (0.000-0.056) ng/mL Total Protein (6.4-8.2) g/dL Albumin (3.4-5.0) g/dL Globulin (2.3-3.5) g/dL Albumin/Globulin Ratio (1.2-2.2) 01/08/19 01/08/19 Range/Units 10:00 11:02 WBC (4.5-11.0) K/uL RBC (3.30-5.50) M/uL Hgb (12.0-15.0) g/dL Hct (36.0-48.0) % MCV (80-98) fL MCH (27-31) pg MCHC (32-36) % Plt Count (150-400) K/uL Neut % (Auto) (36-66) % Lymph % (Auto) (24-44) % [place] % (Auto) (2-6) % Eos % (Auto) (2-4) % Baso % (Auto) (0-1) % D-Dimer, Quantitative (0.0-400.0) ng/mL Puncture Site ABG pH (7.350-7.450) ABG pCO2 (35.0-42.0) mmHg ABG pO2 (75.0-100.0) mmHg ABG HCO3 (22.0-26.0) mmol/L ABG Total CO2 (21.0-25.0) mmol/L ABG O2 Saturation (95.0-98.0) % ABG O2 Content (15.0-23.0) %vol ABG Base Excess mm/L ABG Hemoglobin (12.0-16.0) g/dL ABG Oxyhemoglobin % ABG Carboxyhemoglobin (0.0-1.6) % ABG Methemoglobin % Petey Test O2 Delivery Device Sodium 135 L (140-148) mmol/L Potassium 3.3 L (3.6-5.2) mmol/L Chloride 97 L (100-108) mmol/L Carbon Dioxide 23 (21-32) mmol/L Anion Gap 18.3 H (5.0-14.0) mmol/L BUN 23 H (7-18) mg/dL Creatinine 1.1 H (0.6-1.0) mg/dL Est Cr Clr Drug Dosing 39.67 mL/min Estimated GFR (MDRD) 48 L (>60) Glucose 111 H (74-106) mg/dL Calcium 9.6 (8.5-10.1) mg/dL Ferritin 6 L (8-388) ng/ml Total Bilirubin 0.3 (0.2-1.0) mg/dL AST 17 (15-37) U/L ALT 25 (12-78) U/L Alkaline Phosphatase 58 (46-116) U/L Troponin I 0.025 (0.000-0.056) ng/mL Total Protein 7.4 (6.4-8.2) g/dL Albumin 3.6 (3.4-5.0) g/dL Globulin 3.8 H (2.3-3.5) g/dL Albumin/Globulin Ratio 1.0 L (1.2-2.2) - Re-Assessments/Exams Free Text/Narrative Re-Assessment/Exam: 01/08/19 09:56 ABGs were obtained on room air, as well as a CBC CMP troponin and d-dimer. ABGs did reveal moderate hyperventilation with a pH of 7.53 and PCO2 of 20. Her hemoglobin surprisingly returned 7.4, it was 10.9 in the clinic 4 months ago. A stool guaiac was then obtained, the rectal exam was normal with normal colored stool. 01/08/19 10:44 The rest of her labs were reassuring except for a hemoglobin of 7.4. 01/08/19 10:44 Stool guaiac was negative. Patient had a very important appointment at the clinic at 11 AM for a hearing aid test. She was discharged to go to her hearing test and will return to discuss her low hemoglobin 01/08/19 11:27 After discussing her condition with the hospitalist service and her primary provider Dr. Page, patient will be scheduled for 1 unit of packed RBC transfusion as well as 250 mg of IV iron to be given at the [facility] tomorrow. She will then follow-up with Dr. Page early next week to discuss colonoscopy and further evaluation as well as repeating the CBC. Departure - Departure Time of Disposition: 10:51 Disposition: Home, Self-Care 01 Condition: Fair Clinical Impression: Anxiety Anemia Qualifiers: Anemia type: unspecified type Qualified Code(s): D64.9 - Anemia, unspecified - Discharge Information Instructions: Anemia Referrals: Gilberto Page MD [Primary Care Provider] - Forms: ED Department Discharge Care Plan Goals: Go to your hearing appointment as scheduled, and return after your appointment to discuss the rest of your lab results.
== END 2019-01-08 10:51 | disposition home or self-care (01) ==
LOC: JP.ED 09:04
DX: F41.9 Anxiety disorder, unspecified (principal); D64.9 Anemia, unspecified; E78.00 Pure hypercholesterolemia, unspecified; I10 Essential (primary) hypertension; J44.9 Chronic obstructive pulmonary disease, unspecified; F32.9 Major depressive disorder, single episode, unspecified; Z87.891 Personal history of nicotine dependence; Z88.2 Allergy status to sulfonamides; Z88.1 Allergy status to other antibiotic agents; Z88.5 Allergy status to narcotic agent; Z79.82 Long term (current) use of aspirin
CPT/HCPCS: 36415; 36600; 80053; 82272; 82728; 82803; 84484; 85025; 85379; 99284; 99285

== ENCOUNTER 2019-01-19 07:56 | Day surgery (SDC) | payer MEDICARE ==
[2019-01-19] MEDS ORDERED: fentaNYL 100 MCG/2 ML SDV ONE (09:32)
[2019-01-19] MEDS ORDERED: Propofol 200 MG/20 ML SDV ONE ×3 (09:33→12:27)
[2019-01-19] MEDS ORDERED: Midazolam 1 MG/ML 2 ML SDV ONE (09:33)
[2019-01-19] MEDS ORDERED: Lactated Ringers 1,000 ML IV SCH (10:00)
[2019-01-19 13:36] VITALS: BP 127/70
--- NOTE | 2019-01-20 12:53 | OR ---
DATE OF PROCEDURE: 01/19/2019 PREOPERATIVE DIAGNOSIS: Anemia. POSTOPERATIVE DIAGNOSES: Anemia, etiology unknown; gastric polyps consistent with fundic gland polyps; colonic diverticulosis. PROCEDURE: Esophagogastroduodenoscopy with duodenal biopsy for celiac sprue, biopsy resection of larger gastric polyps, colonoscopy to the cecum. SURGEON: Braxton Smart MD ANESTHESIA: IV anesthesia with monitored anesthesia care. INDICATION: This 78-year-old white female is referred for upper and lower endoscopy because of anemia. Many years ago, she has undergone upper and lower endoscopy, this was in [facility]. I counseled her for upper and lower endoscopy with possible biopsy, including risks and alternatives, and she gave her informed consent to proceed. DESCRIPTION OF PROCEDURE: The patient was placed in the left lateral decubitus position. IV anesthesia was administered by the Anesthesia Service. Time-out was held. The flexible video Olympus upper endoscope was passed through her mouth, down her esophagus, and into her stomach. The scope was easily passed through the pylorus into the duodenum, reaching its third portion. The scope was then slowly withdrawn, examining the mucosa throughout. The duodenal mucosa appeared unremarkable. The scope was brought up through the pylorus. The antrum appeared unremarkable. The scope was retroflexed. We saw several polypoid lesions in the field. These were removed with the biopsy forceps, the larger ones. We did obtain biopsies of the second and third portion of the duodenum for celiac sprue. The scope was brought up to the GE junction. This appeared unremarkable and then it was brought up through the unremarkable-appearing esophagus and was removed. Next, a rectal exam was performed, which was unremarkable. The flexible video Olympus colonoscope was introduced through her anus, up her rectum, out her colon, all the way to the cecum. En route, we saw a few scattered both left and right-sided diverticula. There was no bleeding or inflammation associated with any of them. Once the cecum was reached, the scope was slowly withdrawn, examining the mucosa throughout. No additional mucosal abnormalities were noted. The scope was retroflexed in the rectum with the distal rectum appearing unremarkable. The scope was straightened and removed. She tolerated the procedure well. Braxton Smart MD /[id number]
== END 2019-01-19 13:57 | disposition home or self-care (01) ==
LOC: JP.SDS 07:56
PROVIDERS: ATTEND Surgery
DX: D64.9 Anemia, unspecified (principal); K31.7 Polyp of stomach and duodenum; K57.30 Diverticulosis of large intestine without perforation or abscess without bleeding; J44.9 Chronic obstructive pulmonary disease, unspecified; I10 Essential (primary) hypertension; E78.5 Hyperlipidemia, unspecified
CPT/HCPCS: 43239; 45378; J2250; J2704; J3010; J7120